=== PATIENT | female | born 1930 | race Caucasian/White ===

== ENCOUNTER 2017-01-08 11:12 | Emergency (ER) | payer OTHER ==
[~2017-01-08] VITALS: Ht 165.1 cm; Wt 77.1 kg
[2017-01-08] MEDS ORDERED: SIMVASTATIN20 M2 PO (11:28)
[2017-01-08] MEDS ORDERED: SYNTHROID88 MCG PO (11:28)
[2017-01-08] MEDS ORDERED: JANUVIA100 M1 PO (11:29)
[2017-01-08] MEDS ORDERED: ACETAMINOPHEN-1 EAC3 PO (11:29)
[2017-01-08] MEDS ORDERED: ALENDRONATE SOD70 M2 PO (11:29)
--- NOTE | 2017-01-08 12:20 | ED UPPER/LOWER EXTREMITY COMPL ---
History of Present Illness General Chief Complaint: Hip Injury Stated Complaint: BIBA FOR CHRONIC RIGHT HIP PAIN Source: patient Exam Limitations: no limitations Vital Signs & Intake/Output Vital Signs & Intake/Output Vital Signs Date Time Temp Pulse Resp B/P Pulse O2 O2 Flow FiO2 Ox Delivery Rate 01/09 1443 97.0 80 20 130/60 97 Room Air 01/09 1236 96.9 76 16 136/63 96 Room Air 01/09 1100 97.0 80 20 146/60 98 Room Air 01/09 0912 97.2 88 18 163/72 97 Room Air 01/09 0719 97.0 85 20 184/79 98 Room Air 01/09 0447 83 18 145/65 96 Room Air 01/08 2325 96.9 89 20 148/65 95 Room Air 01/08 2125 99.1 94 18 145/67 94 Room Air 01/08 1847 Room Air 01/08 1631 78 18 152/68 98 Room Air ED Intake and Output 01/09 0000 01/08 1200 Intake Total Output Total 300 Balance -300 Output, Urine 300 Patient 170 lb Weight Allergies Coded Allergies: sulfamethoxazole (From BACTRIM) (UNKNOWN 01/08/17) trimethoprim (From BACTRIM) (UNKNOWN 01/08/17) Reconcile Medications Acetaminophen With Codeine (Acetaminophen-Cod #3 Tablet) 300 MG-30 MG TABLET 1 TAB PO Q6P PRN PAIN (Reported) Alendronate Sodium 70 MG TABLET 1 TAB PO QW OSTEOPENIA (Reported) in the morning, at least 30 minutes before the first food, beverage, or medication of the day Levothyroxine Sodium (Synthroid) 88 MCG TABLET 1 TAB PO DAILY HYPOTHYROID ( Reported) Simvastatin (Simvastatin*) 20 MG TABLET 1 TAB PO QPM HPL (Reported) Sitagliptin Phosphate (Januvia) 100 MG TABLET 1 TAB PO DAILY DM (Reported) Triage Note: BIBA FROM HOME C/O RIGHT HIP/LOW BACK PAIN X2-3 WEEKS, NO TRAUMA. SEEN BY PMD FOR SAME LAST WEEK, FEMUR XR NEG PER PT/FAMILY, GIVEN TYLENOL #3 FOR PAIN AND REPORTS IT IS NOT WORKING AND PAIN IS WORSE. Triage Nurses Notes Reviewed? yes Onset: Abrupt Duration: week(s): (2), constant, continues in ED Timing: recent history Severity: severe Pain/Injury Location: Right: Hip. Method of Injury: unknown No Modifying Factors: none HPI: 86-year-old female comes into emergency room with complaints of severe right hip pain. Patient reports the symptoms of a going on for almost 2 weeks and getting progressively worse. Symptoms began after she opened the garage door at home and was reaching for a can of food. Denies any falls or trauma. Denies any other associated symptoms. Sharp pain. Continuous. Nonradiating. Nothing seems to make the symptoms better or worse. (DEUCE HERNANDEZ) Past History Travel History Traveled to [place] past 21 day No Medical History Any Pertinent Medical History? see below for history Cardiovascular: HYPERLIPIDEMIA Musculoskeletal: OSTEOPENIA Endocrine: diabetes, THYROIDECTOMY Surgical History Surgical History: non-contributory Psychosocial History Who do you live with Spouse Services at Home None What is your primary language Maltese Tobacco Use: Never used Family History Hx Contributory? No (DEUCE HERNANDEZ) Review of Systems Review of Systems Constitutional: Reports: no symptoms. EENTM: Reports: no symptoms. Respiratory: Reports: no symptoms. Cardiovascular: Reports: no symptoms. Gastrointestinal/Abdominal: Reports: no symptoms. Genitourinary: Reports: no symptoms. Musculoskeletal: Reports: see HPI. Skin: Reports: no symptoms. Neurological/Psychological: Reports: no symptoms. Hematologic/Endocrine: Reports: no symptoms. Immunological: Reports: no symptoms. All Other Systems: Reviewed and Negative (DEUCE HERNANDEZ) Physical Exam Physical Exam General Appearance: well developed/nourished Head: atraumatic Eyes: Bilateral: normal appearance. Ears, Nose, Throat: normal ENT inspection, hearing grossly normal Neck: normal inspection Cardiovascular/Respiratory: no respiratory distress Back: normal inspection Hip Right: soft tissue tenderness, limited range of motion Knee Right: normal range of motion, normal inspection Neurologic/Tendon: normal sensation, normal motor functions, normal tendon functions, responds to pain, no evidence tendon injury, no pulse deficit Skin: intact, normal color, warm/dry Lymphatic: no anterior cervical ramila (DEUCE HERNANDEZ) Progress Differential Diagnosis: contusion, dislocation, fracture, gout, septic arthritis , sprain, tendon injury Plan of Care: Orders Procedure Date/time Status Regular Diet 01/09 B Active URINALYSIS 01/09 08 Complete COMPREHENSIVE METABOLIC PANEL 01/09 08 Complete CBC WITHOUT DIFFERENTIAL 01/09 825 Complete Theraputic Activities 15 Min 01/09 UNK Complete Therapeutic Exercise X 15 01/09 UNK Complete PT Evaluate & Treat 01/08 1520 Active MOBILITY GOAL STATUS 01/08 UNK Complete MOBILITY CURRENT STATUS 01/08 UNK Complete PT EVAL MOD COMPLEX 30 MIN 01/08 UNK Complete Laboratory Tests 01/09/17 1351: Urine Color YEL, Urine Clarity CLDY H, Urine pH 6.5, Ur Specific [place] 1.015, Urine Protein TRACE H, Urine Ketones 15 H, Urine Nitrite POS H, Urine Bilirubin NEG, Urine Urobilinogen 0.2, Ur Leukocyte Esterase MOD H, Ur Microscopic SEDIMENT EXAMINED, Urine RBC RARE, Urine WBC > 75 H, Ur Epithelial Cells RARE, Urine Mucus RARE, Urine Hemoglobin TRACE-LYSED, Urine Glucose NEG 01/09/17 0830: Anion Gap 15, Estimated GFR 59 L, BUN/Creatinine Ratio 22.2, Glucose 164 H, Calcium 9.6, Total Bilirubin 1.3, AST 29, ALT 29, Alkaline Phosphatase 53, Total Protein 7.4, Albumin 4.2, Globulin 3.2, Albumin/Globulin Ratio 1.3, CBC w Diff MAN DIFF ORDERED, RBC 4.65, MCV 91.8, MCH 31.4 H, RDW 12.5, MPV 7.4, Gran % 89.0 H, Lymphocytes % 9.0 L, Monocytes % 1.7, Eosinophils % 0, Basophils % 0.3 , Absolute Granulocytes 12.4 H, Absolute Lymphocytes 1.2, Absolute Monocytes 0.2, Absolute Eosinophils 0, Absolute Basophils 0, Platelet Estimate ADEQUATE, Normocytic RBCs VERIFIED, Normochromic RBCs VERIFIED, PUBS MCHC 34.2 Diagnostic Imaging: Viewed by Me: CT Scan. Discussed w/RAD: CT Scan. Radiology Impression: SERVICE DATE: 01/08/17 EXAM TYPE: CAT - CT LUMB SPINE WO IV CONTRAST; CT PELVIS WO IV CONTRAST EXAMINATION: CT PELVIS WITHOUT CONTRAST CT LUMBAR SPINE WITHOUT CONTRAST CLINICAL INFORMATION: Right hip and lower back pain. COMPARISON: CT abdomen and pelvis 08/16/2011. TECHNIQUE: Multiple axial CT images of the pelvis and lumbar spine were obtained without intravenous contrast. 2-D coronal and sagittal reformatted images of the pelvis and lumbar spine were obtained at the acquisition workstation. FINDINGS: Pelvis: Noncontrast CT of the pelvis demonstrates demineralization of the visualized bones. No grossly displaced pelvic fractures are identified. The sacrum is grossly intact. There are mild degenerative changes involving the pubic symphysis. There are no significant degenerative changes involving the bilateral sacroiliac joints. There is no appreciable diastases of the bilateral sacroiliac joints or pubic symphysis. The iliopectineal and ilioischial lines are grossly intact. Evaluation of the soft tissues demonstrates scattered colonic diverticulosis, without visible signs of acute diverticulitis. Also noted is scattered atherosclerosis of the imaged abdominal aorta and its branching vessels, without aneurysmal dilatation. Lumbar spine: Noncontrast CT of the lumbar spine demonstrates demineralization of the visualized bones. There are mild to moderate degenerative changes of the lumbar spine, most significant at L3-L4. Also noted is mild to moderate facet arthrosis of the lumbar spine. No acute fracture of the lumbar spine is identified. There is mild levoscoliosis of the lumbar spine and approximately 1 cm of the left lateral displacement of L3 relative to L4. There is no appreciable anterolisthesis or retrolisthesis of the lumbar spine. Paravertebral soft tissues appear unremarkable. Evaluation of the individual levels demonstrates: T12-L1: No significant neuroforaminal narrowing or spinal canal stenosis. L1-L2: No significant neuroforaminal narrowing or spinal canal stenosis. L2-L3: Questionable soft tissue within the right neuroforamina at L2-L3 with associated mass effect upon the spinal canal (series 5, image 40). This finding is indeterminate and incompletely characterized on this examination and could reflect a soft tissue mass within this region versus a posterior disc extrusion. The left neuroforamina appears patent. There is mild spinal canal narrowing. L3-L4: Bilateral facet arthrosis contribute to mild right-sided neuroforaminal narrowing. No significant left-sided neuroforaminal narrowing or spinal canal stenosis. L4-L5: Bilateral facet arthrosis contributing to mild spinal canal stenosis. No significant neuroforaminal narrowing. L5-S1: No significant neuroforaminal narrowing or spinal canal stenosis. IMPRESSION: 1. Demineralization of the visualized bones. No acute pelvic fractures. No acute sacral fractures. Mild degenerative changes involving the pubic symphysis. 2. Mild to moderate multilevel degenerative changes of the lumbar spine, most significant at L3-L4. Additionally, there is mild levoscoliosis of the lumbar spine with approximately 1 cm of the left lateral displacement of L3 relative to L4. 3. Questionable soft tissue within the right neuroforamina at L2-L3, with associated mass effect upon the spinal canal. As finding is indeterminate but could reflect posterior disc extrusion given the aforementioned degenerative changes within the lumbar spine. A dedicated contrast-enhanced MRI of the lumbar spine would be helpful in further evaluation. DICTATED BY: JESUS HUFF MD Hand-Off Endorsed To: LOULOU CHRISTENSEN MD Endorsed Time: 2110 Pending: consult (pt) (DEUCE HERNANDEZ) Comments: 01/09/2017 7:12:45 AM patient signed out to Dr. Thomas. (LOULOU CHRISTENSEN MD) Comments: Short term rehab arrangements completed. (DOV THOMAS MD) Departure Departure Condition: Stable Referrals: Bhavin EASON MD (PCP/Family) Departure Forms: Customer Survey General Discharge Information Comments 01/08/2017 9:10:13 PM Patient has been reevaluated multiple times here multiple doses of IV pain medication. Patient failed to ambulate appropriately for physical therapy and they recommended that the patient be medicated overnight and get a reevaluation in the morning. Case management has been involved with the patient's care. It was their recommendation that the patient's stay here in the emergency room and get pain medication and get reevaluated in the morning by physical therapy to determine whether or not she may need short-term rehabilitation. (DEUCE HERNANDEZ) Departure Time of Disposition: 1443 Disposition: ACUTE REHAB FACILITY Clinical Impression Primary Impression: Intractable pain Secondary Impressions: Leukocytosis, unspecified Qualifiers: Leukocytosis type: unspecified Qualified Code: D72.829 - Elevated white blood cell count, unspecified Muscle strain UTI (urinary tract infection) Qualifiers: Urinary tract infection type: site unspecified Hematuria presence: without hematuria Qualified Code: N39.0 - Urinary tract infection, site not specified PA/GENERATION ENGINEERING TECHNOLOGIST Co-Sign Statement Statement: ED Attending supervision documentation- x I saw and evaluated the patient. I have also reviewed all the pertinent lab results and diagnostic results. I agree with the findings and the plan of care as documented in the PA's/GENERATION ENGINEERING TECHNOLOGIST's documentation. [] I have reviewed the ED Record and agree with the PA's/GENERATION ENGINEERING TECHNOLOGIST's documentation. [] Additions or exceptions (if any) to the PAs/GENERATION ENGINEERING TECHNOLOGIST's note and plan are summarized below: [] (DOV THOMAS MD)
--- NOTE | 2017-01-08 14:55 | CT SCAN REPORT ---
EXAMINATION: CT PELVIS WITHOUT CONTRAST CT LUMBAR SPINE WITHOUT CONTRAST CLINICAL INFORMATION: Right hip and lower back pain. COMPARISON: CT abdomen and pelvis 08/16/2011. TECHNIQUE: Multiple axial CT images of the pelvis and lumbar spine were obtained without intravenous contrast. 2-D coronal and sagittal reformatted images of the pelvis and lumbar spine were obtained at the acquisition workstation. FINDINGS: Pelvis: Noncontrast CT of the pelvis demonstrates demineralization of the visualized bones. No grossly displaced pelvic fractures are identified. The sacrum is grossly intact. There are mild degenerative changes involving the pubic symphysis. There are no significant degenerative changes involving the bilateral sacroiliac joints. There is no appreciable diastases of the bilateral sacroiliac joints or pubic symphysis. The iliopectineal and ilioischial lines are grossly intact. Evaluation of the soft tissues demonstrates scattered colonic diverticulosis, without visible signs of acute diverticulitis. Also noted is scattered atherosclerosis of the imaged abdominal aorta and its branching vessels, without aneurysmal dilatation. Lumbar spine: Noncontrast CT of the lumbar spine demonstrates demineralization of the visualized bones. There are mild to moderate degenerative changes of the lumbar spine, most significant at L3-L4. Also noted is mild to moderate facet arthrosis of the lumbar spine. No acute fracture of the lumbar spine is identified. There is mild levoscoliosis of the lumbar spine and approximately 1 cm of the left lateral displacement of L3 relative to L4. There is no appreciable anterolisthesis or retrolisthesis of the lumbar spine. Paravertebral soft tissues appear unremarkable. Evaluation of the individual levels demonstrates: T12-L1: No significant neuroforaminal narrowing or spinal canal stenosis. L1-L2: No significant neuroforaminal narrowing or spinal canal stenosis. L2-L3: Questionable soft tissue within the right neuroforamina at L2-L3 with associated mass effect upon the spinal canal (series 5, image 40). This finding is indeterminate and incompletely characterized on this examination and could reflect a soft tissue mass within this region versus a posterior disc extrusion. The left neuroforamina appears patent. There is mild spinal canal narrowing. L3-L4: Bilateral facet arthrosis contribute to mild right-sided neuroforaminal narrowing. No significant left-sided neuroforaminal narrowing or spinal canal stenosis. L4-L5: Bilateral facet arthrosis contributing to mild spinal canal stenosis. No significant neuroforaminal narrowing. L5-S1: No significant neuroforaminal narrowing or spinal canal stenosis. IMPRESSION: 1. Demineralization of the visualized bones. No acute pelvic fractures. No acute sacral fractures. Mild degenerative changes involving the pubic symphysis. 2. Mild to moderate multilevel degenerative changes of the lumbar spine, most significant at L3-L4. Additionally, there is mild levoscoliosis of the lumbar spine with approximately 1 cm of the left lateral displacement of L3 relative to L4. 3. Questionable soft tissue within the right neuroforamina at L2-L3, with associated mass effect upon the spinal canal. As finding is indeterminate but could reflect posterior disc extrusion given the aforementioned degenerative changes within the lumbar spine. A dedicated contrast-enhanced MRI of the lumbar spine would be helpful in further evaluation.
[2017-01-09 08:53] LABS: ABSOLUTE BASOPHIL COUNT 0 /CUMM (0.0-0.2); ABSOLUTE EOSINOPHIL COUNT 0 /CUMM (0.0-0.7); ABSOLUTE GRANULOCYTE CT 12.4 /CUMM (1.4-6.5); ABSOLUTE LYMPH COUNT 1.2 /CUMM (1.2-3.4); ABSOLUTE MONOCYTE COUNT 0.2 /CUMM (0.10-0.60); BASOPHIL % 0.3 % (0.0-2.0); EOSINOPHIL % 0 % (0-5); HEMATOCRIT 42.7 % (37-47); MEAN CORPUSCULAR HGB 31.4 PG (27.0-31.0); MEAN CORPUSCULAR HGB CONC 34.2 G/DL (33.0-37.0); MEAN CORPUSCULAR VOLUME 91.8 FL (81.0-99.0); MEAN PLATELET VOLUME 7.4 FL (7.4-10.4); PLATELET COUNT 254 /CUMM (130-400); RBC DISTRIBUTION WIDTH 12.5 % (11.5-14.5); RED BLOOD CELL CT 4.65 /CUMM (4.20-5.40); WHITE BLOOD CELL COUNT 13.9 /CUMM (4.8-10.8)
[2017-01-09 14:43] VITALS: BP 130/60
== END 2017-01-09 14:49 ==
LOC: ERH 11:12
PROVIDERS: Emergency Medicine
DX: S76.011A Strain of muscle, fascia and tendon of right hip, initial encounter (principal); R52 Pain, unspecified; D72.829 Elevated white blood cell count, unspecified; N39.0 Urinary tract infection, site not specified; X50.9XXA Other and unspecified overexertion or strenuous movements or postures, initial encounter; Y92.009 Unspecified place in unspecified non-institutional (private) residence as the place of occurrence of the external cause
CPT/HCPCS: 81001; 96374; 96375; 96376; 97110-GP; 97162-GP; 97530-GP; G8978-GP; G8979-GP; J1100; J2930; J3360

== ENCOUNTER 2018-04-04 02:14 | Inpatient (IN) | payer OTHER ==
[~2018-04-04] VITALS: Ht 165.1 cm; Wt 80.0 kg
[~2018-04-04 02:14] MED LIST: ACETAMINOPHEN-1 EAC3 PO; ALENDRONATE SOD70 M2 PO; CYCLOBENZAPRINE10 M1 PO; IBUPROFEN600 M1 PO; JANUVIA100 M1 PO; NORCO 5-325 TA1 EACH PO; RESTASIS1 EACH OPH; SIMVASTATIN20 M2 PO; SYNTHROID88 MCG PO
--- NOTE | 2018-04-04 13:03 | Admission Core Measures ---
Acute Coronary Syndrome (CM) ACS Core Measures Acute Coronary Syndrome Diagnosis No Congestive Heart Failure (NEW) CHF Core Measures Congestive Heart Failure Diagnosis No Cerebrovascular Accident (NEW) CVA Core Measures CVA/TIA Diagnosis No Venous Thromboembolism VTE Core Margret (View Protocol) VTE Risk Factors Surgery No Mechanical VTE Prophylaxis d/t N/A MechProphylax Ordered No VTE Pharm Prophylaxis d/t Surgical Contraindication Problem List As ranked by this Provider includes Assessment & Plan 1. Radiculopathy, lumbar region HOME MEDS Home Med List Cyclosporine (Restasis) 0.05 % DROPERETTE 1 GTT OPH BID EYE (Reported) Levothyroxine Sodium (Synthroid) 88 MCG TABLET 1 TAB PO DAILY AC THYROID ( Reported) Simvastatin (Simvastatin*) 20 MG TABLET 1 TAB PO QPM HPL (Reported) Sitagliptin Phosphate (Januvia) 100 MG TABLET 1 TAB PO DAILY DM (Reported)
[2018-04-04 15:00] VITALS: BP 130/70
--- NOTE | 2018-04-04 15:16 | PN- Orthopedic ---
Subjective Subjective: Postoperative: Patient lying flat in bed, pain is controlled, no other complaints. Objective Vital Signs and I&Os Vital signs stable, afebrile Physical Exam: Well-developed well-nourished no apparent distress. Elderly female, looks stated age HEENT: Atraumatic, extraocular motion intact Neck: Supple, no lymphadenopathy Respiratory: No respiratory distress Back: Dressing in place, clean and dry. MARÍA drain with approximately 50 cc of bloody drainage Extremities: No edema, no calf pain neurovascularly intact distally, no focal deficits Neuro: Alert and oriented x3 Psych: Mood affect normal, normal memory normal judgment. Skin: Warm and dry, no rash on exposed skin Assessment/Plan Assessment/Plan Postop day #0 status post lumbar laminectomy, discectomy and fusion L2-L5 Complicated by small dural tear which was primarily repaired Continue MARÍA drain, perioperative antibiotics until drain removed. Pain medication as needed. valium prn spasm Due to dural tear, patient will remain with head of bed no greater than 10 until tomorrow, if no significant symptoms of dural leak continues, may elevate head of bed to 30 tomorrow IV fluids until tolerating adequate p.o. Regular diet Follow a.m. labs ALPS for DVT prophylaxis Regular home meds Core Measures Venous Thromboembolism VTE Risk Factors Surgery No Mechanical VTE Prophylaxis d/t N/A MechProphylax Ordered No VTE Pharm Prophylaxis d/t Surgical Contraindication
--- NOTE | 2018-04-04 15:20 | Surgical Discharge Summary ---
Visit Information Visit Dates Admission Date: 04/04/18 Discharge Date: 04/08/18 Addendum Addendum Patient's discharge was held for 1 day due to no bowel movement. Patient was discharged 04/09/2018. History of Present Illness Chief Complaint: Low back pain and right leg pain Medical History Neurological: NONE EENT: NONE Cardiovascular: HYPERLIPIDEMIA Respiratory: NONE Gastrointestinal: NONE Hepatic: NONE Renal: NONE Musculoskeletal: chronic back pain, OSTEOPENIA SCOLIOSIS Psychiatric: NONE Endocrine: diabetes, THYROIDECTOMY Blood Disorders: NONE Cancer(s): NONE TECHNICAL BUYER/Reproductive: NONE Isolation History: Standard Surgical History Pertinent Surgical History: non-contributory Psychosocial History Who Do You Live With? Spouse Services at Home: None What is Your Primary Language? Pashto Review of Systems: See [facility] Hospital Course Course Attending Physician: Benitez Cui MD Primary Care Physician: Branden GUARDADO,Jason Halesite Hospital Course: Patient underwent lumbar laminectomy, and uninstrumented fusion L2-L5, complicated by small dural tear which was primarily repaired. She remained flat for 2 days and then started getting out of bed with physical therapy. MARÍA drain was kept in place and antibiotics were continued until drain was removed. She was started on augmentin on 04/07/18 for e.coli>100,000 urinary tract infection, which is sensitive to augmentin. She was assessed by PT, and they have recommended continued treatment at short term rehab. She should continued on augmentin for one week following her discharge. Complications: Intraoperative dural tear Allergies: Coded Allergies: amoxicillin (From AUGMENTIN) (Intermediate, DIZZINESS 03/26/18) clavulanic acid (From AUGMENTIN) (Intermediate, DIZZINESS 03/26/18) sulfamethoxazole (From BACTRIM) (Intermediate, ACHY 03/26/18) gabapentin (dizzy/weakness 04/03/18) lorazepam (From ATIVAN) (hallucinations 03/26/18) trimethoprim (From BACTRIM) (ACHY 03/26/18) Disposition Summary Disposition Principal Diagnosis: Herniated disc, lumbar Spinal stenosis Intraoperative dural tear Additional Diagnosis: lumbar laminectomy, noninstrumented fusion L2-L5 urinary tract infection Discharge Disposition: SNF Discharge Instructions General Discharge Information Code Status: Full Code Patient's Diet: Diabetic diet Patient's Activity: Out of bed with brace, no lifting greater than 5 pounds, no bending or twisting Follow-Up Instructions/Appts: With Benitez Cui MD in 7-10 days Pain medication as needed and Valium as needed for spasm Medications at Discharge Discharge Medications: Continue taking these medications: Simvastatin (Simvastatin*) 20 MG TABLET 1 Tablet ORAL Every night Qty = 90 Levothyroxine Sodium (Synthroid) 88 MCG TABLET 1 Tablet ORAL DAILY BEFORE BREAKFAST Qty = 90 Sitagliptin Phosphate (Januvia) 100 MG TABLET 1 Tablet ORAL DAILY Qty = 90 Cyclosporine (Restasis) 0.05 % DROPERETTE 1 Drop In the eye TWICE DAILY Qty = 180 Start taking the following new medications: Amoxicillin/Clavulanate Potass (Amox-Clav 875-125 MG Tablet) 875 MG-125 MG TABLET 875 Milligram ORAL EVERY 12 HOURS Days = 7 No Refills Instructions: take with food Diazepam (Diazepam) 2 MG TABLET 2 Milligram ORAL EVERY SIX HOURS NEEDED as needed for SPASMS Days = 7 No Refills Instructions: stagger with pain medication, as needed Docusate Sodium (Docusate Sodium) 100 MG CAPSULE 100 Milligram ORAL TWICE DAILY as needed for CONSTIPATION Days = 14 No Refills Instructions: hold for loose stool Oxycodone HCl (Oxycodone HCl) 5 MG TABLET 2.5 Milligram ORAL EVERY 4-6 HOURS NEEDED as needed for PAIN SCALE 4-6 ( MODERATE) Qty = 30 No Refills Oxycodone HCl (Oxycodone HCl) 5 MG TABLET 5 Milligram ORAL EVERY 4-6 HOURS NEEDED as needed for PAIN SCALE 7-10 ( SEVERE) Qty = 30 No Refills Sennosides/Docusate Sodium (Senna-Time S Tablet) 8.6 MG-50 MG TABLET 187 Milligram ORAL AT BEDTIME as needed for CONSTIPATION Days = 14 No Refills Acetaminophen (Tylenol Extra Strength) 500 MG TABLET 1 Tablet ORAL EVERY 4-6 HOURS NEEDED as needed for pain any scale Days = 10 No Refills Instructions: may be used in combination with other pain medication Copies To: Branden GUARDADO,Jason Hdz
--- NOTE | 2018-04-04 15:25 | Patient Discharge Instructions ---
Discharge Instructions General Discharge Information You were seen/treated for: Low back pain and right leg pain, spinal stenosis You had these procedures: lumbar laminectomy, and uninstrumented fusion L2-L5, complicated by small dural tear which was primarily repaired urinary tract infection, e.coli sensitive to augmentin Watch for these problems: Headaches, nausea, vomiting, sensitivity to light Severe back pain, fever, flulike illness Drainage from the wound, redness about the wound, pain in the legs or numbness in the legs, loss of bowel or bladder control Call Surgeon to remove: Aren (2 weeks) No bath, but you may shower: Yes Other wound care: Dry dressing daily Special Instructions: No lifting greater than 5 pounds. No bending or twisting Use back brace when out of bed take pain medication and antispasm medication as needed Diet Continue normal diet: Yes Recommended Diet: Diabetic Activity Full Activity/No Limits: No Activity Self Limited: Yes Pounds, do NOT lift more than: 5 Acute Coronary Syndrome Inclusion Criteria At DC or during hospital stay patient has or had the following: ACS DIAGNOSIS No Discharge Core Measures Meds if any: Prescribed or Continued at Discharge Meds if any: NOT Prescribed or Continued at Discharge Congestive Heart Failure Inclusion Criteria At DC or during hospital stay patient has or had the following: CHF DIAGNOSIS No Discharge Core Measures Meds if any: Prescribed or Continued at Discharge Meds if any: NOT Prescribed or Continued at Discharge Cerebrovascular accident Inclusion Criteria At DC or during hospital stay patient has or had the following: CVA/TIA Diagnosis No Discharge Core Measures Meds if any: Prescribed or Continued at Discharge Meds if any: NOT Prescribed or Continued at Discharge Venous thromboembolism Inclusion Criteria VTE Diagnosis No VTE Type NONE VTE Confirmed by (Test) NONE Discharge Core Measures - Per Current guidelines, there needs to be overlap - treatment for the first 5 days of Warfarin therapy. - If discharged on Warfarin prior to 5 days of - overlap therapy, the patient will need to be - assessed for post discharge needs including - *Post discharge parental anticoagulation - *Warfarin and/or parental anticoagulation education - *Follow up date to check INR post discharge At least 5 days overlap therapy as Inpatient No Meds if any: Prescribed or Continued at Discharge Note: Overlap Therapy is Warfarin and Anticoagulant Meds if any: NOT Prescribed or Continued at Discharge
--- NOTE | 2018-04-04 17:04 | RADIOLOGY REPORT ---
EXAMINATION: CR LUMBAR SPINE/INTRAOPERATIVE FLUOROSCOPY CLINICAL INDICATION: L2-L4 hemilaminectomy. COMPARISON: CT scan of the lumbar spine dated 12/21/2017. TECHNIQUE/FINDINGS: Fluoroscopic equipment was dedicated to the operating room for the performance of an intraoperative procedure. Several (4) spot films were acquired and are archived in PACS. Please refer to operative notes for procedural detail. FLUOROSCOPY TIME: 0.2 minutes IMPRESSION: Administrative dictation for intraoperative fluoroscopy and image archiving in PACS. Please refer to operative notes for details.
[2018-04-04 17:16] VITALS: BP 120/60
[2018-04-04 19:08] VITALS: BP 122/60
[2018-04-04 21:00] VITALS: BP 110/60
[2018-04-05 01:07] VITALS: BP 100/50
[2018-04-05 09:03] VITALS: BP 110/60
[2018-04-05 09:33] LABS: ABSOLUTE BASOPHIL COUNT 0 /CUMM (0.0-0.2); ABSOLUTE EOSINOPHIL COUNT 0.1 /CUMM (0.0-0.7); ABSOLUTE GRANULOCYTE CT 8.6 /CUMM (1.4-6.5); ABSOLUTE LYMPH COUNT 1.8 /CUMM (1.2-3.4); ABSOLUTE MONOCYTE COUNT 0.5 /CUMM (0.10-0.60); BASOPHIL % 0.3 % (0.0-2.0); EOSINOPHIL % 0.7 % (0-5); HEMATOCRIT 31.3 % (37-47); MEAN CORPUSCULAR HGB 31.1 PG (27.0-31.0); MEAN CORPUSCULAR HGB CONC 33.5 G/DL (33.0-37.0); MEAN CORPUSCULAR VOLUME 92.8 FL (81.0-99.0); MEAN PLATELET VOLUME 7.7 FL (7.4-10.4); PLATELET COUNT 221 /CUMM (130-400); RBC DISTRIBUTION WIDTH 13.7 % (11.5-14.5); RED BLOOD CELL CT 3.37 /CUMM (4.20-5.40)
--- NOTE | 2018-04-05 11:01 | PN- Orthopedic ---
See Addendum Surgical Brief Attending Note Brief Attending Note: rounded himself this morning and saw this patient. He directed for me to do the following: elevate head of bed 10 degrees every hour, as tolerated, until upright ok to dangle feet off bed if tolerating hob elevation advance diet as tolerated to diabetic diet. d/c iv fluids d/c ancef after drain removed (he was going to remove the drain himself) PT chevy in am
[2018-04-05 12:02] VITALS: BP 112/70
[2018-04-05 14:01] VITALS: BP 110/60
[2018-04-05 22:07] VITALS: BP 120/80
[2018-04-06 06:32] VITALS: BP 136/60
--- NOTE | 2018-04-06 11:22 | PN- Orthopedic ---
See Addendum Subjective Subjective: Patient lying in bed sleeping but arousable and answers questions. Daughter is present during visit. Patient complains of lumbar pain without radicular symptoms. no fevers or chills no headache Review of Systems Constitutional: Reports: malaise, weakness. Denies: chills, fever. Cardiovascular: Denies: chest pain, edema, palpitations, peripheral edema. Respiratory: Denies: cough, short of breath. Gastrointestinal: Reports: constipation. Denies: abdominal pain, distention, nausea, vomiting. Admission Lab Results I reviewed the following labs: patient lying in bed sleepy but arousable chest CTA symmetric Heart- RRR without MRG abdomen - soft, NT Lumbar wound - drain removed yesterday no erythema, dressings to be changed with Dr. Cui bilateral lower extremities -calves soft no edema Objective Vital Signs and I&Os Vital Signs Date Time Temp Pulse Resp B/P B/P Pulse O2 O2 Flow FiO2 Mean Ox Delivery Rate 04/06 0632 99.3 78 20 136/60 91 Room Air 04/05 2248 99.3 04/05 2207 100.8 94 20 120/80 93 04/05 2149 100.1 04/05 1401 97.4 68 18 110/60 97 Nasal Cannula 04/05 1202 98.0 70 20 112/70 95 Nasal 2.0L Cannula 04/05 1157 Nasal 2.0L Cannula Intake & Output 04/06 1600 04/06 0800 04/06 0000 04/05 1600 04/05 0800 04/05 0000 Intake Total 240 120 201 056 3585 Output Total 0888 759 9130 30 926 Balance -760 330 810 314 Intake, IV 50 600 600 Intake, Oral 240 120 800 240 640 Output, 30 76 Drainage Output, Urine 5899 044 9447 850 Assessment/Plan Assessment/Plan POD 2 L2-5 lami/fusion with dural tear awaiting input from Dr. Cui on advancing activity level and D/C dodson and IVF advance diet will change lumbar dressing with Dr. Cui today Core Measures Venous Thromboembolism VTE Risk Factors Surgery No Mechanical VTE Prophylaxis d/t N/A MechProphylax Ordered No VTE Pharm Prophylaxis d/t Surgical Contraindication
[2018-04-06 14:41] VITALS: BP 120/60
[2018-04-06 22:37] VITALS: BP 120/80
[2018-04-07 06:20] VITALS: BP 118/60
--- NOTE | 2018-04-07 10:42 | PN- Neurosurgical ---
See Addendum Subjective Subjective: PT IN BED, BACK PAIN 2/10 AT REST. 5/10 WITH MOVEMENT. CONCERNED BC SHE HAS BLISTERS ON BACK AT PERIPHERY OF BANDAGE THAT OUR NOW OOZING SEROUS FLUID ON TO BEDDING. STILL HAS DEL VALLE IN PLACE. HAS NOT BEEN OOB YET, PLAN FOR PT TODAY. Objective Vital Signs and I&Os Vital Signs Date Time Temp Pulse Resp B/P B/P Pulse O2 O2 Flow FiO2 Mean Ox Delivery Rate 04/07 06 99.2 77 18 118/60 94 Room Air 04/06 2237 99.3 79 20 120/80 95 Room Air 04/06 1441 99.4 85 20 120/60 92 Intake & Output 04/07 1600 04/07 0800 04/07 0000 04/06 1600 04/06 0800 04/06 0000 Intake Total 1030 240 120 Output Total 950 8941 137 7826 450 Balance -950 -1700 255 -760 -330 Intake, IV 150 Intake, Oral 880 240 120 Number 0 0 Bowel Movements Output, Urine 950 2106 551 8114 450 Physical Exam: GEN- NAD RESP- CLEAR CARDIAC- RRR ABD- ND, SOFT, NT BACK- DRESING CHANGED, ISAÍAS IN PLACE, MINIMAL DRAINAGE ON DRESSING, NO SIGNS OF INFECTION. SMALL BLISTERS AT PERIPHERY OF BANDAGE LIKELY FROM TAPE WITH LIGHT SEROUS DRAINAGE. EXT- WARM AND DRY, DISTAL SENORY AND MOTOR FUNCTION INTACT. Current Medications: Current Medications Sig/[place] Start time Last Medication Dose Route Stop Time Status Admin Acetaminophen 1,000 MG .STK-MED ONE 04/07 0126 DC IV 04/07 0127 Acetaminophen 1,000 MG .STK-MED ONE 04/06 1827 DC IV 04/06 1828 Acetaminophen 1,000 MG .STK-MED ONE 04/06 1223 DC IV 04/06 1224 Acetaminophen 1,000 MG Q6P PRN 04/04 1445 AC 04/07 IV 0732 Amoxicillin/ 875 MG Q12 04/07 0900 AC 04/07 Clavulanate Potassium PO 04/11 0859 0854 Atorvastatin Calcium 10 MG 1700 04/04 1700 AC 04/06 PO 1744 Cyclosporine 1 GTT BID 04/04 2100 AC 04/07 OPH 0854 Diazepam 5 MG ONCE ONE 04/06 2245 DC 04/06 PO 04/06 224 2242 Diazepam 2 MG Q6P PRN 04/06 1415 AC 04/07 PO 0527 Diazepam 5 MG 4 TIMES/DAY PRN 04/04 1300 CAN PO Docusate Sodium 100 MG BID 04/04 2100 AC 04/07 PO 0854 Levothyroxine Sodium 0.088 MG DAILY AC 04/05 0700 AC 04/07 PO 0527 Morphine Sulfate 1 MG Q3P PRN 04/06 1415 AC IV Morphine Sulfate 2 MG Q2P PRN 04/04 1445 DC 04/06 IV 0847 Omeprazole 40 MG DAILY AC 04/04 1515 AC 04/07 PO 0527 Ondansetron HCl 4 MG Q6P PRN 04/04 1445 AC IV Oxycodone HCl 2.5 MG Q3P PRN 04/06 1415 AC PO Oxycodone HCl 5 MG Q3P PRN 04/06 1415 AC PO Oxycodone HCl 5 MG Q6P PRN 04/04 1300 DC 04/06 PO 0527 Oxycodone HCl 10 MG Q6P PRN 04/04 1300 DC 04/06 PO 0125 Promethazine HCl 12.5 MG Q6P PRN 04/04 1445 AC IV 04/11 1259 Sitagliptin Phosphate 100 MG DAILY 04/05 0900 AC 04/07 PO 0854 Assessment/Plan Assessment/Plan 87YO F SP L2-5 LUM-LAMI WITH NON-INSTRUMENTED FUSION WITH DURAL TEAR POD 3. STABLE PLAN FOR PHYSICAL THERAPY TODAY WILL ELIANA DEL VALLE PRIOR TO OOB WITH PT REG DIET DVT PPX- ALPS PAIN MANAGEMENT- TRY TO LIMIT NARCOTICS AND VALIUM CONT ABX FOR PRE-EXISTING UTI DC PLANNING- LIKELY TO STR TOMORROW DR ABRAHAM TO SEE PT LATER TODAY Core Measures Venous Thromboembolism VTE Risk Factors Surgery No Mechanical VTE Prophylaxis d/t N/A MechProphylax Ordered No VTE Pharm Prophylaxis d/t Surgical Contraindication
[2018-04-07 11:37] VITALS: BP 140/70
[2018-04-07 14:34] VITALS: BP 120/60
[2018-04-07 15:32] LABS: ABSOLUTE BASOPHIL COUNT 0 /CUMM (0.0-0.2); ABSOLUTE EOSINOPHIL COUNT 0.4 /CUMM (0.0-0.7); ABSOLUTE GRANULOCYTE CT 8.3 /CUMM (1.4-6.5); ABSOLUTE LYMPH COUNT 1.5 /CUMM (1.2-3.4); ABSOLUTE MONOCYTE COUNT 0.9 /CUMM (0.10-0.60); BASOPHIL % 0.4 % (0.0-2.0); GRANULOCYTE % 74.3 % (42.2-75.2); HEMATOCRIT 32.6 % (37-47); MEAN CORPUSCULAR HGB 31.6 PG (27.0-31.0); MEAN CORPUSCULAR HGB CONC 33.5 G/DL (33.0-37.0); MEAN CORPUSCULAR VOLUME 94.4 FL (81.0-99.0); MEAN PLATELET VOLUME 7.4 FL (7.4-10.4); PLATELET COUNT 236 /CUMM (130-400); RBC DISTRIBUTION WIDTH 13.5 % (11.5-14.5); RED BLOOD CELL CT 3.45 /CUMM (4.20-5.40); WHITE BLOOD CELL COUNT 11.2 /CUMM (4.8-10.8)
[2018-04-07 22:07] VITALS: BP 126/80
--- NOTE | 2018-04-08 05:16 | Operative Report ---
Operative/Inv Procedure Report Surgery Date: 04/04/18 Name of Procedure: 1) L2 Right Exposing Hemilaminotomy, L2-L3 Right Neurodecompressive Partial Medial Undercutting Facetectomy, Extensive Partial Unroofing (Possibly Unilaterally Destabilizing) Medial And Middle Zone Foraminotomy And Discectomy For Complete Decompression Of Exiting L2 And Traversing L3 Neural Elements ( Basilia/Haile, P.A.-C) 2) L3 Right Neurodecompressive Hemilaminotomy, L3-L4 Right Partial Medial Undercutting Facetectomy, Extensive Partial Unroofing (Possibly Unilaterally Destabilizing) Medial And Middle Zone Foraminotomy And Discectomy For Complete Decompression Of Exiting L3 And Traversing L4 Neural Elements (Basilia/Haile, P.A.-C) 3) L2-L3 Right Posterolateral Intertransverse Process Uninstrumented Fusion (Basilia/Haile, P.A.-C) 4) L3-L4 Right Posterolateral Intertransverse Process Uninstrumented Fusion (Basilia/Haile, P.A.-C) 5) Preparation And Implantation Of L2-L4 Posterobilateral Intertransverse Process Nonstructural Allograft Subtitute Osteopromotive Material (Basilia) 6) [place], Preparation And Implantation Of L2-L4 Posterobilateral Intertransverse Process Morselized Local Autograft (Basilia) Pre-Operative Diagnosis: Disc herniation L2-3 L3 4 L2-3 L3-4 spinal stenosis L2-3 and L3 4 degenerative disc disease Radiculopathy Post-Operative Diagnosis: Same as preoperative Estimated Blood Loss: see anesthesia or Cell Saver record Surgeon/Staff Development Educator: FERDINAND ABRAHAM MD - Primary Admitting Orthopaedic Surgeon Surgical Providers: Ferdinand Abraham M.D. - Orthopaedic Spine Surgeon Carmenza Be, P.A.-C - Crackling Press Operator Anesthesia: general endotracheal tube Operative/Procedure Note Note: Immediate preoperative examination there were no changes compared to her preoperative clearance evaluations. Ferdinand Abraham MD was present for and participated in all phases of the procedure as well as all decision making processes for the perioperative period. Assistance of a specially trained physician's child care center assistant director was critical for protection of the neural elements and visualization. The patient was brought to the operating room in stable condition and induced with general anesthesia without complication. She was placed on the operating table in the prone position with all pressure points padded. After sterile prep and drape per protocol A midline incision was made overlying the intended operative levels at L2 and L3. The fascia was exposed and divided on both sides of the spinous processes and the dissection was carried down the paraspinal musculature in the subperiosteal layer to the lamina. The dissection was further carried out laterally to the medial aspect of facet with the facet capsule preserved. Intended operative level was marked with a sublaminar curved curet at the inferior margin of the lamina and confirmed to be the proper level by lateral fluoroscopy. Initially a hemilaminotomy was attempted however it became obvious that this would not adequately decompress the patient's stenosis and that preservation of the midline elements would not significantly add to her stability and so the laminectomy was completed by removing the spinous processes and lamina in piecemeal fashion by dissecting beneath the lamina with a curved curet to remove any adhesions and then using Kerrison rongeurs to remove the laminae. The dissection and decompression was then carried out laterally particularly on the patient's more symptomatically right side into the lateral and foraminal zone. All neural elements were completely decompressed. A small 5 mm incidental durotomy was noted and repaired using interrupted and [id number] nylon suture repair and a watertight closure. No further efflux of cervical spinal fluid was noted throughout the remainder of the procedure. Dissection was carried over the facets which were denuded at the L2-3 level. The transverse processes were exposed and decorticated along with the lateral aspect of the facet bilaterally. The central bone which had been decompressed was morselized for reimplantation as autograft. This was sufficient to fill the intertransverse process space bilaterally. The neural elements were checked to document uncompressed passage through the central canal and out the foramen on both sides. Dissection was carried down the pedicle to the floor of the canal and medially into the lateral recess and then behind the vertebral body where a second and fibrotic elevation was noted behind the posterior longitudinal ligament corresponding to the migrated disc herniation fragment noted on MRI. This appeared to be well contained and after removal of the posterior elements was nor causing a significant ventral compression to the traversing thecal sac or nerve roots. A Gaby curette was used to ensure that there was no free fragment within the canal and nothing extravasated past the posterior longitudinal ligament. Everything underneath the longitudinal ligament appeared to be fibrotic and was felt to involve more risk than potential benefit by attempting to dissect and remove it. Swelling no further dissection or attempt at midline ventral discectomy was made. The ventral canal was explored by palpation with a Irasema instrument and Gaby curette throughout the entire height of the migrated disc herniation fragment seen on MRI and no free fragment or removable compressive fragment was found. The surgical site was thoroughly irrigated. Standard closure was performed using 0 Vicryl for the fascia and deep muscle, 2-0 Vicryl for the subcutaneous layers and 3-0 Vicryl for the superficial subcutaneous layer. Aren were used to the skin with the edges everted. Sterile dressing was placed. The patient was turned into supine position on the hospital bed. Care was taken to avoid any torsional stress to the lumbar region. Patient was exited without difficulty. She is taken to the recovery room in good condition. She will follow standard protocol for decompression and instrumented fusion with accommodations made to the standard postoperative care based on the patient's age, severity of her degenerative condition and repair of incidental durotomy. CC: Basilia GUARDADO,Ferdinand Barraza; Carmenza Oconnell
[2018-04-08 06:20] VITALS: BP 128/76
--- NOTE | 2018-04-08 07:21 | PN- Orthopedic ---
Subjective Subjective: limited oob, felt dizzy yesterday am when attempted oob, later got into chair with less difficulty. awaiting pt eval this am. feeling down about long recovery. no n/v/cp/sob. no bm but does not want laxative Objective Vital Signs and I&Os Vital Signs Date Time Temp Pulse Resp B/P B/P Pulse O2 O2 Flow FiO2 Mean Ox Delivery Rate 04/08 620 98.3 69 20 128/76 94 Room Air 04/07 2207 98.7 82 24 126/80 93 04/07 1434 98.2 75 20 120/60 94 04/07 1137 97.6 73 20 140/70 94 Intake & Output 04/08 0800 04/08 0000 04/07 1600 04/07 0804/07 0000 04/06 1600 Intake Total 600 1130 1030 Output Total 250 300 099 194 6180 775 Balance -250 300 705 -950 -1700 255 Intake, IV 250 150 Intake, Oral 600 880 880 Number 0 0 0 0 Bowel Movements Output, Urine 250 300 072 990 6316 775 Patient 176 lb Weight Physical Exam: gen- nad card-s1s2 pulm- no audible wheeze abd-soft nt back/ext- incision cdi with chu, some clip erythema, ttp at incision, surrounding skin with open areas and irritation (from tape). bl le: calves soft nt, alps on, gross sensation itnact, gross dorsi/plantar flexion intact. Results Last 48 Hours of Labs: Laboratory Tests 04/07 1445 Chemistry Sodium (137 - 145 mmol/L) 138 Potassium (3.5 - 5.1 mmol/L) 4.0 Chloride (98 - 107 mmol/L) 102 Carbon Dioxide (22 - 30 mmol/L) 26 Anion Gap (5 - 16) 10 BUN (7 - 17 mg/dL) 12 Creatinine (0.5 - 1.0 mg/dL) 0.8 Estimated GFR (>60 ml/min) > 60 BUN/Creatinine Ratio (7 - 25 %) 15.0 Hematology CBC w Diff NO MAN DIFF REQ WBC (4.8 - 10.8 /CUMM) 11.2 H RBC (4.20 - 5.40 /CUMM) 3.45 L Hgb (12.0 - 16.0 G/DL) 10.9 L Hct (37 - 47 %) 32.6 L MCV (81.0 - 99.0 FL) 94.4 MCH (27.0 - 31.0 PG) 31.6 H MCHC (33.0 - 37.0 G/DL) 33.5 RDW (11.5 - 14.5 %) 13.5 Plt Count (130 - 400 /CUMM) 236 MPV (7.4 - 10.4 FL) 7.4 Gran % (42.2 - 75.2 %) 74.3 Lymphocytes % (20.5 - 51.1 %) 13.5 L Monocytes % (1.7 - 9.3 %) 7.8 Eosinophils % (0 - 5 %) 4.0 Basophils % (0.0 - 2.0 %) 0.4 Absolute Granulocytes (1.4 - 6.5 /CUMM) 8.3 H Absolute Lymphocytes (1.2 - 3.4 /CUMM) 1.5 Absolute Monocytes (0.10 - 0.60 /CUMM) 0.9 H Absolute Eosinophils (0.0 - 0.7 /CUMM) 0.4 Absolute Basophils (0.0 - 0.2 /CUMM) 0 Assessment/Plan Assessment/Plan A- POD4 SP lum lami/fusion with intraop dural tear, on augmentin for uti, with limited oob since OR. P- PT eval- OOb as tolerated alps, hep sq augmentin for uti ada diet, check fs prn pain meds dc planning- ?str placement will dw Dr. Cui Core Measures Venous Thromboembolism VTE Risk Factors Surgery No Mechanical VTE Prophylaxis d/t N/A MechProphylax Ordered No VTE Pharm Prophylaxis d/t Surgical Contraindication
[2018-04-08 08:41] LABS: ABSOLUTE BASOPHIL COUNT 0.1 /CUMM (0.0-0.2); ABSOLUTE EOSINOPHIL COUNT 0.7 /CUMM (0.0-0.7); ABSOLUTE GRANULOCYTE CT 6.4 /CUMM (1.4-6.5); ABSOLUTE LYMPH COUNT 1.7 /CUMM (1.2-3.4); ABSOLUTE MONOCYTE COUNT 0.6 /CUMM (0.10-0.60); EOSINOPHIL % 7.1 % (0-5); GRANULOCYTE % 67.5 % (42.2-75.2); HEMATOCRIT 31.9 % (37-47); MEAN CORPUSCULAR HGB 31.5 PG (27.0-31.0); MEAN CORPUSCULAR HGB CONC 34.2 G/DL (33.0-37.0); MEAN CORPUSCULAR VOLUME 92.2 FL (81.0-99.0); MEAN PLATELET VOLUME 7.8 FL (7.4-10.4); PLATELET COUNT 242 /CUMM (130-400); RBC DISTRIBUTION WIDTH 13.3 % (11.5-14.5); RED BLOOD CELL CT 3.46 /CUMM (4.20-5.40); WHITE BLOOD CELL COUNT 9.5 /CUMM (4.8-10.8)
[2018-04-08 13:49] VITALS: BP 120/78
[2018-04-08] MEDS ORDERED: AMOX-CLAV 875-1 EACH PO (16:34)
[2018-04-08] MEDS ORDERED: TYLENOL EXTRA500 M2 PO (16:34)
[2018-04-08] MEDS ORDERED: SENNA-TIME S T1 EACH PO (16:34)
[2018-04-08] MEDS ORDERED: OXYCODONE HCL5 M1 PO (16:34)
[2018-04-08] MEDS ORDERED: DIAZEPAM2 M1 PO (16:34)
[2018-04-08] MEDS ORDERED: DOCUSATE SODIU100 M3 PO (16:34)
[2018-04-08 22:37] VITALS: BP 128/70
[2018-04-09 05:54] VITALS: BP 110/58
[2018-04-09 13:59] VITALS: BP 110/58
== END 2018-04-09 14:50 | DRG 460 ==
LOC: SDA 02:14 → 2NA 02:14 → ENRESERV 13:16 → ENTRNSPT 13:56 → EDTRNSPTSTS 14:12 → 2NA 14:24 → CMPTRNSPT 14:38 → ENPENDDIS 04-09 12:34 → 2NA 04-09 14:50
PROVIDERS: Physician Assistant Surgical
PROC: 0SG10J1 Fusion of 2 or more Lumbar Vertebral Joints with Synthetic Substitute, Posterior Approach, Posterior Column, Open Approach (ICD-10-PCS; principal; 2018-04-04)
PROC: 01NB0ZZ Release Lumbar Nerve, Open Approach (ICD-10-PCS; principal; 2018-04-04)
PROC: 0SB20ZZ Excision of Lumbar Vertebral Disc, Open Approach (ICD-10-PCS; principal; 2018-04-04)
DX: M48.061 Spinal stenosis, lumbar region without neurogenic claudication (principal); N39.0 Urinary tract infection, site not specified; G97.41 Accidental puncture or laceration of dura during a procedure; Z88.1 Allergy status to other antibiotic agents; Y83.9 Surgical procedure, unspecified as the cause of abnormal reaction of the patient, or of later complication, without mention of misadventure at the time of the procedure; Y92.234 Operating room of hospital as the place of occurrence of the external cause; Z88.2 Allergy status to sulfonamides; Z88.8 Allergy status to other drugs, medicaments and biological substances; B96.20 Unspecified Escherichia coli [E. coli] as the cause of diseases classified elsewhere
CPT/HCPCS: 2NAP; 36415; 36592; 72100; 82436; 87086; 97110-GO; 97116-GO; 97162-GP; 97530-GO; C9399; J0131; J0690; J1644; J2405; J2550; J7042